=== PATIENT | female | born 1985 | race Caucasian/White ===

== ENCOUNTER → 2023-04-12 | Outpatient (CLI) | payer OTHER | LOC: M WHC 07:37 | PROVIDERS: ATTEND Advanced Practice Midwife | DX: Z34.02 Encounter for supervision of normal first pregnancy, second trimester (principal); Z3A.20 20 weeks gestation of pregnancy ==

== ENCOUNTER → 2023-05-01 | Outpatient (CLI) | payer OTHER | LOC: M WHC 06:45 | PROVIDERS: ATTEND Advanced Practice Midwife | DX: O09.512 Supervision of elderly primigravida, second trimester (principal) ==

== ENCOUNTER → 2023-05-18 | Outpatient (CLI) | payer OTHER ==
[2023-05-18 11:05] LABS: HEMATOCRIT 35.7 % (36.0-47.0); HEMOGLOBIN 11.8 g/dl (12.0-15.5); MEAN CORPUSCULAR HEMOGLOBIN 30.6 pg (27.0-33.0); MEAN CORPUSCULAR HGB CONC 33.1 g/dl (32.0-36.5); MEAN CORPUSCULAR VOLUME 92.5 fl (80.0-96.0); PLATELET COUNT, AUTOMATED 286 10^3/uL (150-450); RED BLOOD COUNT 3.86 10^6/uL (4.00-5.40); WHITE BLOOD COUNT 11.3 10^3/uL (4.0-10.0)
[2023-05-18 12:33] LABS: GC DNA AMPLIFICATION NEGATIVE (NEGATIVE)
== END ==
LOC: M PLALAB 07:04
PROVIDERS: ATTEND Obstetrics & Gynecology
DX: Z34.92 Encounter for supervision of normal pregnancy, unspecified, second trimester (principal)

== ENCOUNTER → 2023-07-26 | Outpatient (REF) | payer OTHER | LOC: M PLALAB 08:08 | PROVIDERS: ATTEND Obstetrics & Gynecology | DX: Z34.80 Encounter for supervision of other normal pregnancy, unspecified trimester (principal) ==

== ENCOUNTER → 2023-08-10 | Outpatient (REF) | payer OTHER | LOC: M SFHCDERM 16:12 | PROVIDERS: ATTEND Physician Assistant | DX: L08.9 Local infection of the skin and subcutaneous tissue, unspecified (principal) ==

== ENCOUNTER 2023-08-21 07:25 | Inpatient (IN) | payer OTHER ==
[2023-08-21] VITALS (11 sets, daily range): BP systolic 113–138; BP diastolic 68–83
[~2023-08-21] VITALS: Ht 162.6 cm; Wt 91.2 kg
[2023-08-21] MEDS ORDERED: PRENTAB9 PO (07:51)
[2023-08-21] MEDS ORDERED: LACTATED RINGER'S 1000 ML IV STA (08:09)
[2023-08-21] MEDS ORDERED: CARBOPROST TROMETHAMINE 250 MCG/ML AMP IM PRN (08:10)
[2023-08-21] MEDS ORDERED: METHYLERGONOVINE MALEATE 0.2MG/ML 1ML VIAL IM PRN (08:10)
[2023-08-21] MEDS ORDERED: LIDOCAINE 1% MDV 20ML VIAL INFIL PRN (08:10)
[2023-08-21] MEDS ORDERED: OXYTOCIN INJ 10UNITS/ML 1ML VIAL IM PRN (08:10)
[2023-08-21] MEDS ORDERED: TRANEXAMIC ACID INJection 1,000 MG in NS 100 ML IV PRN (08:10)
[2023-08-21] MEDS ORDERED: OXYTOCIN DRIP 30 UNITS in IV 1 EA IV PRN (08:10)
[2023-08-21 09:18] LABS: HEMATOCRIT 36.3 % (36.0-47.0); HEMOGLOBIN 12.1 g/dl (12.0-15.5); MEAN CORPUSCULAR HEMOGLOBIN 28.9 pg (27.0-33.0); MEAN CORPUSCULAR HGB CONC 33.3 g/dl (32.0-36.5); MEAN CORPUSCULAR VOLUME 86.6 fl (80.0-96.0); PLATELET COUNT, AUTOMATED 266 10^3/uL (150-450); RED BLOOD COUNT 4.19 10^6/uL (4.00-5.40); WHITE BLOOD COUNT 8.5 10^3/uL (4.0-10.0)
[2023-08-21] MEDS: miSOPROStol 50MCG 1/2 TABLET PO SCH ×4 (10:00→22:21)
[2023-08-22] VITALS (41 sets, daily range): BP systolic 101–150; BP diastolic 55–96; O2SAT 96
[2023-08-22] MEDS ORDERED: ONDANSETRON 4MG 2ML VIAL IV PRN (01:55)
[2023-08-22] MEDS ORDERED: ePHEDrine SULFATE 25 MG/5 ML(5MG/ML) SYRINGE IVP PRN (01:55)
[2023-08-22] MEDS ORDERED: NALOXONE INJ 0.4MG/1ML VIAL IV PRN (01:55)
[2023-08-22] MEDS ORDERED: diphenhydrAMINE 50MG/ML VIAL IV PRN (01:55)
[2023-08-22] MEDS ORDERED: LR 500 ML IV PRN (01:55)
[2023-08-22] MEDS ORDERED: EPIDURAL/PCA KEYS XX PRN (01:55)
[2023-08-22] MEDS: miSOPROStol 50MCG 1/2 TABLET PO SCH ×2 (02:00→06:00)
[2023-08-22] MEDS: FENTANYL/ROPIVACAINE/NACL BAG 100 ML EPIDURAL SCH ×2 (02:06→09:57)
[2023-08-22] MEDS ORDERED: OXYTOCIN DRIP 30 UNITS in IV 1 EA IV SCH (04:15)
[2023-08-22] MEDS: LR 1,000 ML IV SCH ×2 (06:21→14:55)
[2023-08-22] MEDS ORDERED: DOCUSATE SODIUM 100MG CAPSULE PO PRN (16:35)
[2023-08-22] MEDS ORDERED: RHOGAM 300MCG (1500IU) INJ IM SCH (16:35)
[2023-08-22] MEDS ORDERED: ACETAMINOPHEN TAB 650MG DOSE (2X325MG) PO PRN (16:35)
[2023-08-22] MEDS ORDERED: ACETAMINOPHEN 500 MG TAB PO PRN (16:35)
[2023-08-22] MEDS ORDERED: IBUPROFEN 600MG TAB PO PRN (16:35)
[2023-08-22] MEDS ORDERED: METHYLERGONOVINE MALEATE 0.2 MG TAB PO PRN (16:35)
[2023-08-22] MEDS: IBUPROFEN 800 MG TAB PO PRN (19:08)
[2023-08-22] MEDS: DIBUCAINE 1% OINTMENT 30GM TOP PRN (20:00)
[2023-08-23] MEDS: DIBUCAINE 1% OINTMENT 30GM TOP PRN (05:31)
[2023-08-23 06:00] VITALS: BP 134/71; O2SAT 100
[2023-08-23] MEDS: IBUPROFEN 800 MG TAB PO PRN ×2 (07:42→16:48)
[2023-08-23] MEDS: PRENATAL VITAMINS CHEWABLE TABLET PO SCH (08:31)
[2023-08-23 18:00] VITALS: BP 108/66; O2SAT 97
[2023-08-24 06:00] VITALS: BP 103/57; O2SAT 97
[2023-08-24] MEDS: PRENATAL VITAMINS CHEWABLE TABLET PO SCH (08:10)
[2023-08-24] MEDS: IBUPROFEN 800 MG TAB PO PRN (08:13)
[2023-08-24] MEDS: DIBUCAINE 1% OINTMENT 30GM TOP PRN ×2 (08:15→13:57)
[2023-08-24] MEDS ORDERED: MEASLES,MUMPS,RUBELLA VACCINE INJ (MMR-II) SC.IMMUN ONE (09:00)
== END 2023-08-24 14:46 | disposition home or self-care (01) | DRG 807 ==
LOC: M LDI 07:25 → M OBS 08-22 19:34
PROVIDERS: ADMIT Advanced Practice Midwife; ATTEND Advanced Practice Midwife
PROC: 3E033VJ Introduction of Other Hormone into Peripheral Vein, Percutaneous Approach (ICD-10-PCS; 2023-08-21)
PROC: 3E0DXGC Introduction of Other Therapeutic Substance into Mouth and Pharynx, External Approach (ICD-10-PCS; 2023-08-21)
PROC: 10E0XZZ Delivery of Products of Conception, External Approach (ICD-10-PCS; principal; 2023-08-22)
PROC: 0KQM0ZZ Repair Perineum Muscle, Open Approach (ICD-10-PCS; 2023-08-22)
PROC: 10907ZC Drainage of Amniotic Fluid, Therapeutic from Products of Conception, Via Natural or Artificial Opening (ICD-10-PCS; 2023-08-22)
DX: O70.1 Second degree perineal laceration during delivery (principal); Z37.0 Single live birth; Z3A.39 39 weeks gestation of pregnancy; Z88.7 Allergy status to serum and vaccine; Z87.891 Personal history of nicotine dependence; O09.523 Supervision of elderly multigravida, third trimester

== ENCOUNTER → 2024-04-29 | Outpatient (CLI) | payer OTHER ==
[~2024-04-29] MED LIST: PRENTAB9 PO
[2024-04-29 17:35] LABS: HEMATOCRIT 37.9 % (36.0-47.0); HEMOGLOBIN 13.3 g/dl (12.0-15.5); MEAN CORPUSCULAR HEMOGLOBIN 31.3 pg (27.0-33.0); MEAN CORPUSCULAR HGB CONC 35.1 g/dl (32.0-36.5); MEAN CORPUSCULAR VOLUME 89.2 fl (80.0-96.0); PLATELET COUNT, AUTOMATED 226 10^3/uL (150-450); RED BLOOD COUNT 4.25 10^6/uL (4.00-5.40); WHITE BLOOD COUNT 6.3 10^3/uL (4.0-10.0)
[2024-04-29 18:34] LABS: HIV 1&2 SCREEN NEGATIVE (NEGATIVE)
[2024-04-29 18:43] LABS: HEPATITIS C VIRUS ABY INDEX < 0.02 INDEX (<0.8)
[2024-04-29 19:11] LABS: GC DNA AMPLIFICATION NEGATIVE (NEGATIVE)
== END ==
LOC: M PLALAB 16:26
PROVIDERS: ATTEND Advanced Practice Midwife
DX: Z34.91 Encounter for supervision of normal pregnancy, unspecified, first trimester (principal)

== ENCOUNTER → 2024-06-28 | Outpatient (CLI) | payer OTHER | LOC: M WHC 09:23 | PROVIDERS: ATTEND Specialist | DX: O32.1XX0 Maternal care for breech presentation, not applicable or unspecified (principal); Z3A.19 19 weeks gestation of pregnancy ==

== ENCOUNTER → 2024-07-30 | Outpatient (CLI) | payer OTHER ==
[2024-07-30 13:22] LABS: GLUCOSE CHALLENGE TEST 1 HOUR 80 MG/DL (LESS THAN 140)
[2024-07-30 13:27] LABS: HEMATOCRIT 38.2 % (36.0-47.0); HEMOGLOBIN 12.8 g/dl (12.0-15.5); MEAN CORPUSCULAR HGB CONC 33.5 g/dl (32.0-36.5); MEAN CORPUSCULAR VOLUME 92.5 fl (80.0-96.0); PLATELET COUNT, AUTOMATED 274 10^3/uL (150-450); RED BLOOD COUNT 4.13 10^6/uL (4.00-5.40); WHITE BLOOD COUNT 9.6 10^3/uL (4.0-10.0)
[2024-07-30 14:38] LABS: GC DNA AMPLIFICATION NEGATIVE (NEGATIVE)
[2024-07-30 14:44] LABS: HIV 1&2 SCREEN NEGATIVE (NEGATIVE)
[2024-07-30 14:52] LABS: HEPATITIS C VIRUS ABY INDEX 0.02 INDEX (<0.8)
== END ==
LOC: M PLALAB 08:41
PROVIDERS: ATTEND Specialist
DX: Z34.92 Encounter for supervision of normal pregnancy, unspecified, second trimester (principal); Z3A.00 Weeks of gestation of pregnancy not specified

== ENCOUNTER → 2024-10-07 | Outpatient (CLI) | payer OTHER | LOC: M WHC 15:23 | PROVIDERS: ATTEND Nurse Practitioner Family | DX: O09.513 Supervision of elderly primigravida, third trimester (principal); Z3A.00 Weeks of gestation of pregnancy not specified; Z53.9 Procedure and treatment not carried out, unspecified reason ==

== ENCOUNTER → 2024-10-24 | Outpatient (REF) | payer OTHER | LOC: M SFHCWAGY 15:05 | PROVIDERS: ATTEND Nurse Practitioner Family | DX: Z34.93 Encounter for supervision of normal pregnancy, unspecified, third trimester (principal); Z3A.36 36 weeks gestation of pregnancy ==